=== PATIENT | female | born 1995 | race Hispanic/Latino ===

== ENCOUNTER 2021-05-13 22:00 | Emergency (ER) | payer SELFPAY ==
[~2021-05-13] VITALS: Ht 160 cm; Wt 108.9 kg
[2021-05-13] MEDS ORDERED: AZITHROMYCIN 250 MG TAB PO STA (22:14)
[2021-05-13] MEDS ORDERED: PREDNISONE 20 MG TAB PO ONE (22:15)
[2021-05-13] MEDS ORDERED: PREDNISONE20 MG PO (23:19)
[2021-05-13] MEDS ORDERED: AZITHROMYCIN250 MG PO (23:19)
[2021-05-13 23:22] VITALS: BP 159/81
== END 2021-05-13 23:24 | disposition home or self-care (01) ==
LOC: ER 22:12
DX: J02.9 Acute pharyngitis, unspecified (principal)
CPT/HCPCS: 83518; 87070; 99283; J7512

== ENCOUNTER 2022-06-04 21:13 | Emergency (ER) | payer SELFPAY ==
[~2022-06-04] VITALS: Ht 160 cm; Wt 114.3 kg
[~2022-06-04 21:13] MED LIST: AZITHROMYCIN250 MG PO; PREDNISONE20 MG PO
[2022-06-04] MEDS ORDERED: VALTREX1000 MG PO (22:28)
[2022-06-04] MEDS ORDERED: MEDROL4 M2 PO (22:28)
[2022-06-04 22:52] VITALS: BP 145/88
== END 2022-06-04 23:00 | disposition home or self-care (01) ==
LOC: ER 21:20
DX: G51.0 Bell's palsy (principal); R51.9 Headache, unspecified
CPT/HCPCS: 70450; 99282